=== PATIENT | male | born 1945 | race Caucasian/White ===

== ENCOUNTER 2021-01-19 07:23 | Inpatient (IN) | payer MEDICARE, MEDICAID ==
[2021-01-19 07:51] LABS: #Basophils 0.1 thou/uL (0.0-0.2); #Eosinphils 0.6 thou/uL (0.0-0.7); #Lymphocytes 1.7 thou/uL (1.20-3.40); #Neutrophils 9.4 thou/uL (1.40-6.50); %Basophils 0.6 % (0.0-1.0); %Eosinophils 4.6 % (0.0-10.0); %Lymphocytes 13.4 % (21.0-51.0); %Monocytes 7.6 % (0.0-10.0); %Neutrophils 73.8 % (42.0-75.0); Hemoglobin 12.1 g/dL (14.0-18.0); Mean Corpuscular Hemoglobin 31.3 pg (27.0-31.0); Mean Corpuscular Volume 94.7 fL (78.0-98.0); Mean Platelet Volume 7.7 fL (7.4-10.4); Platelet Count 341 thou/uL (130-400); Red Blood Cell (RBC) Count 3.86 mill/uL (4.70-6.10); White Blood Cell (WBC) Count 12.8 thou/uL (4.8-10.8)
[2021-01-19 08:00] LABS: ALT (SGPT) Less than 7 U/L (8-55); AST (SGOT) 9 U/L (5-34); Albumin 1.6 g/dL (3.4-4.8); Alkaline Phosphatase 27 U/L (40-110); Anion Gap 7 mmol/L (10-20); BUN (Urea Nitrogen) 25 mg/dL (8.4-25.7); Bilirubin, Total 0.3 mg/dL (0.2-1.2); Calc. Creatinine Clearance 0 mL/min (70-130); Carbon Dioxide 15 mmol/L (23-31); Chloride 124 mmol/L (98-107); Globulin 1.7 g/dL (2.4-3.5); Protein, Total 3.3 g/dL (5.8-8.1); Sodium 145 mmol/L (136-145)
[2021-01-19 08:08] LABS: Calcium 4.4 mg/dL (7.8-10.44); Glucose 58 mg/dL (83-110); Potassium 1.4 mmol/L (3.5-5.1)
[2021-01-19 08:33] LABS: CKMB 1.4 ng/mL (0-6.6)
[2021-01-19] MEDS ORDERED: Sodium Chloride 0.9% 0 ML ONE (08:35)
[2021-01-19] MEDS ORDERED: cefTRIAXone\\ROCEPHIN 1 GM VIAL ONE (08:35)
[2021-01-19] MEDS ORDERED: Azithromycin 500 MG VIAL ONE (09:24)
[2021-01-19] MEDS ORDERED: Sodium Chloride 0.9% 100 ML ONE (09:24)
[2021-01-19 10:32] LABS: #Basophils 0.1 thou/uL (0.0-0.2); #Eosinphils 0.3 thou/uL (0.0-0.7); #Lymphocytes 0.7 thou/uL (1.20-3.40); #Monocytes 0.3 thou/uL (0.11-0.59); #Neutrophils 9.3 thou/uL (1.40-6.50); %Basophils 0.7 % (0.0-1.0); %Eosinophils 3.1 % (0.0-10.0); %Lymphocytes 6.3 % (21.0-51.0); %Monocytes 3.1 % (0.0-10.0); %Neutrophils 86.8 % (42.0-75.0); Hemoglobin 13.4 g/dL (14.0-18.0); Mean Corpuscular Hemoglobin 31.2 pg (27.0-31.0); Mean Corpuscular Volume 94.3 fL (78.0-98.0); Mean Platelet Volume 8.1 fL (7.4-10.4); Platelet Count 332 thou/uL (130-400); RBC Distribution Width 12.1 % (11.5-14.5); White Blood Cell (WBC) Count 10.7 thou/uL (4.8-10.8)
[2021-01-19 10:53] LABS: Troponin I 0.056 ng/mL (< 0.028)
[2021-01-19 10:58] LABS: ALT (SGPT) 18 U/L (8-55); AST (SGOT) 24 U/L (5-34); Albumin 3.9 g/dL (3.4-4.8); Alkaline Phosphatase 63 U/L (40-110); Anion Gap 20 mmol/L (10-20); BUN (Urea Nitrogen) 48 mg/dL (8.4-25.7); Bilirubin, Total 0.7 mg/dL (0.2-1.2); Calc. Creatinine Clearance 0 mL/min (70-130); Calcium 10.2 mg/dL (7.8-10.44); Carbon Dioxide 27 mmol/L (23-31); Chloride 97 mmol/L (98-107); Globulin 4.3 g/dL (2.4-3.5); Glucose 115 mg/dL (83-110); Potassium 2.4 mmol/L (3.5-5.1); Protein, Total 8.2 g/dL (5.8-8.1); Sodium 142 mmol/L (136-145)
[2021-01-19] MEDS ORDERED: Potassium Chloride 20 MEQ TAB PO SCH (11:30)
[2021-01-19] MEDS ORDERED: Potassium Chloride 40 MEQ in Sodium Chloride 0.9% 250 ML 250 ML IVPB SCH (11:30)
[2021-01-19 13:21] LABS: Bilirubin Negative (Negative); Blood, Urine Negative (Negative); Clarity Clear (Clear); Glucose, Urine (Dipstick) Normal (Negative); Ketone, Urine Trace mg/dL (Negative); Leukocyte 25 Leu/uL (Negative); Nitrite Negative (Negative); Protein, Urine (Dipstick) 10 mg/dL (Neg-Trace); RBC/HPF 0-3 HPF (0-3); Specific Gravity, Urine 1.013 (1.002-1.036); Squamous Epithelial None Seen HPF (0-3); Urobilinogen Normal mg/dL (Less than 2)
[2021-01-19 13:49] LABS: Bacteria/HPF 1+ HPF (None Seen)
[2021-01-19] MEDS ORDERED: Acetaminophen 325 MG TAB PO PRN (15:45)
[2021-01-19] MEDS ORDERED: Ondansetron PF 4 MG/2 ML Vial IVP PRN (15:45)
[2021-01-19] MEDS ORDERED: Ondansetron ODT 4 MG TAB SL PRN (15:45)
[2021-01-19 16:42] LABS: Anion Gap 19 mmol/L (10-20); BUN (Urea Nitrogen) 45 mg/dL (8.4-25.7); Calc. Creatinine Clearance 31 mL/min (70-130); Calcium 9.2 mg/dL (7.8-10.44); Carbon Dioxide 24 mmol/L (23-31); Chloride 104 mmol/L (98-107); Glucose 134 mg/dL (83-110); Potassium 3.1 mmol/L (3.5-5.1); Sodium 144 mmol/L (136-145)
[2021-01-19] MEDS: Sodium Chloride 0.9% 1,000 ML IV SCH (17:39)
[2021-01-19 19:15] LABS: SARS-CoV-2 PCR by NAA Not Detected (NotDetected)
[2021-01-20 04:59] LABS: Hemoglobin 11.2 g/dL (14.0-18.0); Mean Corpuscular HGB CONC 31.1 g/dL (32.0-36.0); Mean Corpuscular Volume 96.5 fL (78.0-98.0); Mean Platelet Volume 7.9 fL (7.4-10.4); Platelet Count 268 thou/uL (130-400); RBC Distribution Width 12.1 % (11.5-14.5); Red Blood Cell (RBC) Count 3.73 mill/uL (4.70-6.10); White Blood Cell (WBC) Count 13.9 thou/uL (4.8-10.8)
[2021-01-20 05:21] LABS: Anion Gap 16 mmol/L (10-20); BUN (Urea Nitrogen) 44 mg/dL (8.4-25.7); Calc. Creatinine Clearance 34 mL/min (70-130); Calcium 8.9 mg/dL (7.8-10.44); Carbon Dioxide 22 mmol/L (23-31); Chloride 108 mmol/L (98-107); Glucose 102 mg/dL (83-110); Potassium 3.1 mmol/L (3.5-5.1); Sodium 143 mmol/L (136-145)
[2021-01-20] MEDS: Sodium Chloride 0.9% 1,000 ML IV SCH ×2 (06:18→18:56)
[2021-01-20] MEDS ORDERED: Potassium Chloride 20 MEQ TAB PO SCH ×2 (07:30→13:00)
[2021-01-20] MEDS ORDERED: cefTRIAXone Sodium 1,000 MG in Syringe 0 ML IVPB SCH (08:30)
[2021-01-20] MEDS: Azithromycin 250 MG TAB PO SCH (12:18)
[2021-01-20] MEDS: cefTRIAXone\\ROCEPHIN 1 GM in Sodium Chloride 0.9% 100 ML IVPB SCH (12:18)
[2021-01-21 05:29] LABS: #Basophils 0.1 thou/uL (0.0-0.2); #Lymphocytes 0.9 thou/uL (1.20-3.40); #Monocytes 0.8 thou/uL (0.11-0.59); #Neutrophils 11.2 thou/uL (1.40-6.50); %Basophils 0.5 % (0.0-1.0); %Eosinophils 7.1 % (0.0-10.0); %Lymphocytes 6.4 % (21.0-51.0); %Monocytes 5.5 % (0.0-10.0); %Neutrophils 80.5 % (42.0-75.0); Hemoglobin 10.8 g/dL (14.0-18.0); Mean Corpuscular Hemoglobin 29.8 pg (27.0-31.0); Mean Corpuscular Volume 96.2 fL (78.0-98.0); Mean Platelet Volume 7.9 fL (7.4-10.4); Platelet Count 280 thou/uL (130-400); RBC Distribution Width 12.1 % (11.5-14.5); Red Blood Cell (RBC) Count 3.64 mill/uL (4.70-6.10); White Blood Cell (WBC) Count 13.9 thou/uL (4.8-10.8)
[2021-01-21 05:53] LABS: Anion Gap 14 mmol/L (10-20); BUN (Urea Nitrogen) 30 mg/dL (8.4-25.7); Calc. Creatinine Clearance 57 mL/min (70-130); Carbon Dioxide 24 mmol/L (23-31); Chloride 108 mmol/L (98-107); Glucose 74 mg/dL (83-110); Sodium 143 mmol/L (136-145)
[2021-01-21] MEDS ORDERED: Potassium Chloride 20 MEQ in Premix Bag 1 BAG IVPB SCH (08:30)
[2021-01-21] MEDS: Sodium Chloride 0.9% 1,000 ML IV SCH ×2 (09:42→22:01)
[2021-01-21] MEDS ORDERED: cefTRIAXone\\ROCEPHIN 1 GM in Sodium Chloride 0.9% 100 ML IVPB SCH (12:00)
[2021-01-21] MEDS: cefTRIAXone\\ROCEPHIN 1 GM in Sodium Chloride 0.9% 100 ML IVPB SCH ×2 (15:08→20:05)
[2021-01-21] MEDS: Azithromycin 250 MG TAB PO SCH (15:09)
[2021-01-22] MEDS: Sodium Chloride 0.9% 1,000 ML IV SCH ×2 (03:18→09:32)
[2021-01-22 05:06] LABS: #Basophils 0.1 thou/uL (0.0-0.2); #Eosinphils 0.7 thou/uL (0.0-0.7); #Lymphocytes 0.8 thou/uL (1.20-3.40); #Monocytes 0.8 thou/uL (0.11-0.59); #Neutrophils 10.2 thou/uL (1.40-6.50); %Basophils 0.5 % (0.0-1.0); %Eosinophils 5.4 % (0.0-10.0); %Lymphocytes 6.1 % (21.0-51.0); %Monocytes 6.5 % (0.0-10.0); %Neutrophils 81.6 % (42.0-75.0); Hemoglobin 11.1 g/dL (14.0-18.0); Mean Corpuscular HGB CONC 33.2 g/dL (32.0-36.0); Mean Corpuscular Hemoglobin 31.7 pg (27.0-31.0); Mean Corpuscular Volume 95.6 fL (78.0-98.0); Mean Platelet Volume 7.8 fL (7.4-10.4); Platelet Count 257 thou/uL (130-400); RBC Distribution Width 12.1 % (11.5-14.5); Red Blood Cell (RBC) Count 3.51 mill/uL (4.70-6.10); White Blood Cell (WBC) Count 12.6 thou/uL (4.8-10.8)
[2021-01-22 05:21] LABS: Anion Gap 16 mmol/L (10-20); BUN (Urea Nitrogen) 22 mg/dL (8.4-25.7); Calc. Creatinine Clearance 54 mL/min (70-130); Calcium 8.8 mg/dL (7.8-10.44); Carbon Dioxide 27 mmol/L (23-31); Chloride 108 mmol/L (98-107); Glucose 79 mg/dL (83-110); Sodium 148 mmol/L (136-145)
[2021-01-22 05:25] LABS: Potassium 2.8 mmol/L (3.5-5.1)
[2021-01-22] MEDS ORDERED: Electrolyte Replacement Protocol 1 EACH FS PRN (05:51)
[2021-01-22] MEDS: Potassium Chloride 20 MEQ in Premix Bag 1 BAG IVPB SCH ×4 (06:07→18:12)
[2021-01-22] MEDS ORDERED: Magnesium 2 GM/50 ML 2 GM in Premix Bag 1 BAG IVPB SCH (07:30)
[2021-01-22] MEDS: Azithromycin 250 MG in Sodium Chloride 0.9% 250 ML 250 ML IVPB SCH (09:20)
[2021-01-22] MEDS ORDERED: hydrALAZINE 20 MG/ML VIAL SLOW IVP PRN (11:26)
[2021-01-22] MEDS: D5 1/2 NS w/20 mEq KCL 1,000 ML IV SCH (13:30)
[2021-01-22] MEDS: cefTRIAXone\\ROCEPHIN 1 GM in Sodium Chloride 0.9% 100 ML IVPB SCH (16:48)
[2021-01-23] MEDS: D5 1/2 NS w/20 mEq KCL 1,000 ML IV SCH ×2 (02:25→11:43)
[2021-01-23 05:27] LABS: #Basophils 0.1 thou/uL (0.0-0.2); #Eosinphils 0.7 thou/uL (0.0-0.7); #Lymphocytes 0.7 thou/uL (1.20-3.40); #Monocytes 0.8 thou/uL (0.11-0.59); #Neutrophils 10.5 thou/uL (1.40-6.50); %Basophils 0.5 % (0.0-1.0); %Eosinophils 5.5 % (0.0-10.0); %Lymphocytes 5.4 % (21.0-51.0); %Monocytes 6.1 % (0.0-10.0); %Neutrophils 82.6 % (42.0-75.0); Hemoglobin 11.4 g/dL (14.0-18.0); Mean Platelet Volume 7.9 fL (7.4-10.4); Platelet Count 255 thou/uL (130-400); RBC Distribution Width 12.2 % (11.5-14.5); Red Blood Cell (RBC) Count 3.69 mill/uL (4.70-6.10); White Blood Cell (WBC) Count 12.7 thou/uL (4.8-10.8)
[2021-01-23 06:00] LABS: Anion Gap 7 mmol/L (10-20); BUN (Urea Nitrogen) 14 mg/dL (8.4-25.7); Calc. Creatinine Clearance 62 mL/min (70-130); Calcium 8.7 mg/dL (7.8-10.44); Carbon Dioxide 32 mmol/L (23-31); Chloride 108 mmol/L (98-107); Glucose 140 mg/dL (83-110); Magnesium 1.6 mg/dL (1.6-2.6); Sodium 144 mmol/L (136-145)
[2021-01-23 06:03] LABS: Potassium 2.9 mmol/L (3.5-5.1)
[2021-01-23] MEDS ORDERED: Magnesium 2 GM/50 ML 2 GM in Premix Bag 1 BAG IVPB SCH (06:30)
[2021-01-23] MEDS: Potassium Chloride 20 MEQ in Premix Bag 1 BAG IVPB SCH ×4 (07:39→13:02)
[2021-01-23] MEDS ORDERED: PROPOFOL 200 MG/20 ML VIAL ONE (09:54)
[2021-01-23] MEDS: Azithromycin 250 MG in Sodium Chloride 0.9% 250 ML 250 ML IVPB SCH (11:03)
[2021-01-23 13:24] VITALS: BMI 16.7
[2021-01-23] MEDS: cefTRIAXone\\ROCEPHIN 1 GM in Sodium Chloride 0.9% 100 ML IVPB SCH (14:05)
[2021-01-23] MEDS ORDERED: Morphine 2 MG/ML VIAL SLOW IVP PRN (16:51)
[2021-01-23] MEDS: HYDROcodone/Acetaminophen 5/325 mg Tablet PER TUBE PRN (18:04)
[2021-01-23] MEDS ORDERED: Sodium Bicarbonate Tab 325 MG TAB PER TUBE PRN (19:15)
[2021-01-23] MEDS ORDERED: Pancrelipase DR 12,000 1 CAP FS PRN (19:15)
[2021-01-23 19:58] LABS: Anion Gap 15 mmol/L (10-20); BUN (Urea Nitrogen) 11 mg/dL (8.4-25.7); Calc. Creatinine Clearance 61 mL/min (70-130); Calcium 8.6 mg/dL (7.8-10.44); Carbon Dioxide 25 mmol/L (23-31); Chloride 106 mmol/L (98-107); Glucose 227 mg/dL (83-110); Sodium 143 mmol/L (136-145)
[2021-01-23 20:03] LABS: Potassium 2.8 mmol/L (3.5-5.1)
[2021-01-23] MEDS: Pantoprazole 40 MG VIAL IVP SCH (23:46)
[2021-01-23] MEDS: Amoxicillin/Potassium Clav 600 mg/5 ml Oral Suspension PER TUBE SCH (23:46)
[2021-01-24] MEDS: D5 1/2 NS w/20 mEq KCL 1,000 ML IV SCH ×2 (04:49→17:25)
[2021-01-24] MEDS ORDERED: Magnesium 2 GM/50 ML 2 GM in Premix Bag 1 BAG IVPB SCH (06:15)
[2021-01-24] MEDS: Potassium Bicarbonate/Cit Ac 20 MEQ TAB PER TUBE SCH ×4 (08:36→21:40)
[2021-01-24] MEDS: Pantoprazole 40 MG VIAL IVP SCH ×2 (08:39→21:40)
[2021-01-24] MEDS: Amoxicillin/Potassium Clav 600 mg/5 ml Oral Suspension PER TUBE SCH (08:44)
[2021-01-24 08:50] LABS: Anion Gap 9 mmol/L (10-20); BUN (Urea Nitrogen) 13 mg/dL (8.4-25.7); Calc. Creatinine Clearance 61 mL/min (70-130); Calcium 8.6 mg/dL (7.8-10.44); Carbon Dioxide 29 mmol/L (23-31); Chloride 106 mmol/L (98-107); Glucose 168 mg/dL (83-110); Sodium 141 mmol/L (136-145)
[2021-01-24 09:12] LABS: Potassium 2.8 mmol/L (3.5-5.1)
[2021-01-24 11:08] LABS: Phosphorus Less than 1.0 mg/dL (2.3-4.7)
[2021-01-24] MEDS ORDERED: Acetaminophen 325 MG TAB PER TUBE PRN (11:45)
[2021-01-24] MEDS: K-Phos Neutral 250 MG TAB PER TUBE SCH ×2 (13:00→17:29)
[2021-01-24] MEDS ORDERED: Furosemide 40 MG/4 ML VIAL SLOW IVP SCH (15:45)
[2021-01-24 19:58] LABS: Potassium 3.3 mmol/L (3.5-5.1)
[2021-01-24] MEDS ORDERED: Piperacillin/Tazobactam 3.375 GM in Sodium Chloride 0.9% 100 ML IVPB SCH ×2 (20:00→23:59)
[2021-01-24] MEDS: HYDROcodone/Acetaminophen 5/325 mg Tablet PER TUBE PRN (21:35)
[2021-01-25] MEDS: Piperacillin/Tazobactam 3.375 GM in Sodium Chloride 0.9% 100 ML IVPB SCH ×3 (01:36→16:18)
[2021-01-25 05:07] LABS: Anion Gap 13 mmol/L (10-20); BUN (Urea Nitrogen) 12 mg/dL (8.4-25.7); Calc. Creatinine Clearance 59 mL/min (70-130); Calcium 8.3 mg/dL (7.8-10.44); Carbon Dioxide 32 mmol/L (23-31); Chloride 100 mmol/L (98-107); Glucose 118 mg/dL (83-110); Potassium 3.5 mmol/L (3.5-5.1); Sodium 141 mmol/L (136-145)
[2021-01-25] MEDS: PHOS-NAK 1 PKT PACK PO SCH ×4 (06:18→18:16)
[2021-01-25] MEDS ORDERED: Potassium Bicarbonate/Cit Ac 20 MEQ TAB PO SCH (06:30)
[2021-01-25 08:56] LABS: Band 12 % (5-11); Eosinophils 1 % (0-10); Hemoglobin 12.8 g/dL (14.0-18.0); Lymphocytes 2 % (21-51); MDiff Complete? YES; Mean Corpuscular Hemoglobin 31.9 pg (27.0-31.0); Mean Corpuscular Volume 93.8 fL (78.0-98.0); Mean Platelet Volume 8.6 fL (7.4-10.4); Monocytes 2 % (0-10); Neutrophil 83 % (42-75); Platelet Count 280 thou/uL (130-400); Platelet Morphology Comment Appears Adequate; RBC Distribution Width 12.6 % (11.5-14.5); RBC Morphology Normal; White Blood Cell (WBC) Count 16.7 thou/uL (4.8-10.8)
[2021-01-25] MEDS: D5 1/2 NS w/20 mEq KCL 1,000 ML IV SCH (09:24)
[2021-01-25] MEDS: Pantoprazole 40 MG VIAL IVP SCH ×2 (09:26→22:13)
[2021-01-25] MEDS: K-Phos Neutral 250 MG TAB PER TUBE SCH ×3 (09:27→18:16)
[2021-01-25] MEDS: Potassium Bicarbonate/Cit Ac 20 MEQ TAB PER TUBE SCH ×3 (09:27→22:13)
[2021-01-25] MEDS: HYDROcodone/Acetaminophen 5/325 mg Tablet PER TUBE PRN ×2 (12:20→22:14)
[2021-01-26] MEDS: Piperacillin/Tazobactam 3.375 GM in Sodium Chloride 0.9% 100 ML IVPB SCH ×3 (00:10→16:22)
[2021-01-26] MEDS: D5 1/2 NS w/20 mEq KCL 1,000 ML IV SCH ×2 (07:09→09:14)
[2021-01-26 08:07] LABS: Phosphorus 3.6 mg/dL (2.3-4.7)
[2021-01-26] MEDS: K-Phos Neutral 250 MG TAB PER TUBE SCH ×3 (09:15→16:21)
[2021-01-26] MEDS: Pantoprazole 40 MG VIAL IVP SCH ×2 (09:15→20:51)
[2021-01-26] MEDS: Potassium Bicarbonate/Cit Ac 20 MEQ TAB PER TUBE SCH ×3 (09:22→20:51)
[2021-01-26] MEDS: Amoxicillin/Potassium Clav 600 mg/5 ml Oral Suspension PER TUBE SCH ×2 (09:53→20:51)
[2021-01-26 16:25] LABS: Chloride 104 mmol/L (98-107); Potassium 3.7 mmol/L (3.5-5.1); Sodium 149 mmol/L (136-145)
[2021-01-26 16:26] LABS: Glucose 115 mg/dL (83-110)
[2021-01-26 16:29] LABS: Calc. Creatinine Clearance 56 mL/min (70-130)
[2021-01-26 16:30] LABS: BUN (Urea Nitrogen) 16 mg/dL (8.4-25.7)
[2021-01-26 16:32] LABS: Magnesium 1.5 mg/dL (1.6-2.6)
[2021-01-26] MEDS ORDERED: Magnesium 2 GM/50 ML 2 GM in Premix Bag 1 BAG IVPB SCH (17:00)
[2021-01-26 17:03] LABS: Anion Gap 16 mmol/L (10-20); Carbon Dioxide 31 mmol/L (23-31)
[2021-01-27] MEDS: Piperacillin/Tazobactam 3.375 GM in Sodium Chloride 0.9% 100 ML IVPB SCH ×3 (05:07→15:15)
[2021-01-27 05:33] LABS: Anion Gap 13 mmol/L (10-20); BUN (Urea Nitrogen) 15 mg/dL (8.4-25.7); Calc. Creatinine Clearance 58 mL/min (70-130); Calcium 8.1 mg/dL (7.8-10.44); Carbon Dioxide 30 mmol/L (23-31); Chloride 106 mmol/L (98-107); Glucose 149 mg/dL (83-110); Phosphorus 3.1 mg/dL (2.3-4.7); Potassium 3.7 mmol/L (3.5-5.1); Sodium 145 mmol/L (136-145)
[2021-01-27] MEDS: Pantoprazole 40 MG VIAL IVP SCH ×2 (08:16→20:56)
[2021-01-27] MEDS: Potassium Bicarbonate/Cit Ac 20 MEQ TAB PER TUBE SCH ×3 (08:16→20:55)
[2021-01-27] MEDS: Amoxicillin/Potassium Clav 600 mg/5 ml Oral Suspension PER TUBE SCH ×2 (08:16→20:56)
[2021-01-27] MEDS: K-Phos Neutral 250 MG TAB PER TUBE SCH ×3 (08:16→16:45)
[2021-01-27] MEDS: D5 1/2 NS w/20 mEq KCL 1,000 ML IV SCH (09:04)
[2021-01-27] MEDS ORDERED: Magnesium 2 GM/50 ML 2 GM in Premix Bag 1 BAG IVPB SCH (09:15)
[2021-01-27] MEDS: HYDROcodone/Acetaminophen 5/325 mg Tablet PER TUBE PRN (12:44)
[2021-01-27] MEDS ORDERED: Furosemide 20 MG/2 ML VIAL SLOW IVP SCH (14:30)
[2021-01-27] MEDS ORDERED: HumaLOG 300 UNITS/3 ML VIAL SC PRN ×2 (14:40)
[2021-01-27] MEDS ORDERED: Dextrose 50% Abboject 50 ML SYRINGE SLOW IVP PRN (14:40)
[2021-01-27] MEDS ORDERED: Dextrose 5% in Water 1,000 ML IV PRN (14:40)
[2021-01-27] MEDS: methylPREDNISolone Sod Succ 40 MG VIAL IVP SCH (18:03)
[2021-01-28] MEDS: Piperacillin/Tazobactam 3.375 GM in Sodium Chloride 0.9% 100 ML IVPB SCH ×3 (00:05→16:08)
[2021-01-28] MEDS: methylPREDNISolone Sod Succ 40 MG VIAL IVP SCH ×3 (00:05→11:26)
[2021-01-28 04:49] LABS: Anion Gap 17 mmol/L (10-20); BUN (Urea Nitrogen) 17 mg/dL (8.4-25.7); Calc. Creatinine Clearance 57 mL/min (70-130); Calcium 8.5 mg/dL (7.8-10.44); Carbon Dioxide 33 mmol/L (23-31); Chloride 103 mmol/L (98-107); Glucose 138 mg/dL (83-110); Magnesium 2.2 mg/dL (1.6-2.6); Potassium 3.7 mmol/L (3.5-5.1); Sodium 149 mmol/L (136-145)
[2021-01-28] MEDS: Amoxicillin/Potassium Clav 600 mg/5 ml Oral Suspension PER TUBE SCH (08:57)
[2021-01-28] MEDS: Potassium Bicarbonate/Cit Ac 20 MEQ TAB PER TUBE SCH ×3 (08:57→21:21)
[2021-01-28] MEDS: K-Phos Neutral 250 MG TAB PER TUBE SCH ×3 (09:08→16:09)
[2021-01-28] MEDS: Pantoprazole 40 MG VIAL IVP SCH ×2 (09:09→21:21)
[2021-01-28] MEDS ORDERED: methylPREDNISolone Sod Succ/PF 125 MG/2 ML VIAL IVP SCH (12:00)
[2021-01-28] MEDS: HYDROcodone/Acetaminophen 5/325 mg Tablet PER TUBE PRN (13:55)
[2021-01-28] MEDS: methylPREDNISolone Sod Succ/PF 125 MG/2 ML VIAL IVP SCH (21:21)
[2021-01-29] MEDS: Piperacillin/Tazobactam 3.375 GM in Sodium Chloride 0.9% 100 ML IVPB SCH ×3 (01:17→16:59)
[2021-01-29] MEDS: Potassium Bicarbonate/Cit Ac 20 MEQ TAB PER TUBE SCH ×3 (08:52→21:00)
[2021-01-29] MEDS: Pantoprazole 40 MG VIAL IVP SCH ×2 (08:52→21:02)
[2021-01-29] MEDS: K-Phos Neutral 250 MG TAB PER TUBE SCH ×3 (08:52→16:59)
[2021-01-29] MEDS: methylPREDNISolone Sod Succ/PF 125 MG/2 ML VIAL IVP SCH (08:53)
[2021-01-29] MEDS: HYDROcodone/Acetaminophen 5/325 mg Tablet PER TUBE PRN ×2 (08:55→21:02)
[2021-01-30] MEDS: Piperacillin/Tazobactam 3.375 GM in Sodium Chloride 0.9% 100 ML IVPB SCH ×3 (00:49→16:04)
[2021-01-30] MEDS: HYDROcodone/Acetaminophen 5/325 mg Tablet PER TUBE PRN ×3 (01:38→20:38)
[2021-01-30] MEDS: Potassium Bicarbonate/Cit Ac 20 MEQ TAB PER TUBE SCH ×3 (08:25→20:38)
[2021-01-30] MEDS: K-Phos Neutral 250 MG TAB PER TUBE SCH ×3 (08:25→16:04)
[2021-01-30] MEDS: Furosemide 40 MG TAB PO SCH (08:25)
[2021-01-30] MEDS: Pantoprazole 40 MG VIAL IVP SCH ×2 (08:28→20:39)
[2021-01-30] MEDS: methylPREDNISolone Sod Succ 40 MG VIAL IVP SCH (08:29)
[2021-01-30 09:08] LABS: #Lymphocytes 0.8 thou/uL (1.20-3.40); #Monocytes 0.7 thou/uL (0.11-0.59); #Neutrophils 12.2 thou/uL (1.40-6.50); %Eosinophils 6.8 % (0.0-10.0); %Lymphocytes 5.4 % (21.0-51.0); %Monocytes 4.5 % (0.0-10.0); %Neutrophils 83.3 % (42.0-75.0); Hemoglobin 11.6 g/dL (14.0-18.0); Mean Corpuscular HGB CONC 31.8 g/dL (32.0-36.0); Mean Corpuscular Hemoglobin 30.8 pg (27.0-31.0); Mean Platelet Volume 9.1 fL (7.4-10.4); Platelet Count 234 thou/uL (130-400); RBC Distribution Width 12.7 % (11.5-14.5); Red Blood Cell (RBC) Count 3.76 mill/uL (4.70-6.10); White Blood Cell (WBC) Count 14.7 thou/uL (4.8-10.8)
[2021-01-30 09:20] LABS: INR-International Normal Ratio 1.2; PTT 25.9 sec (22.9-36.1); Prothrombin Time 14.7 sec (12.0-14.7)
[2021-01-30 09:30] LABS: ALT (SGPT) 45 U/L (8-55); AST (SGOT) 27 U/L (5-34); Albumin 2.6 g/dL (3.4-4.8); Alkaline Phosphatase 74 U/L (40-110); Anion Gap 11 mmol/L (10-20); BUN (Urea Nitrogen) 18 mg/dL (8.4-25.7); Bilirubin, Total 0.6 mg/dL (0.2-1.2); Calc. Creatinine Clearance 62 mL/min (70-130); Calcium 8.6 mg/dL (7.8-10.44); Carbon Dioxide 32 mmol/L (23-31); Chloride 108 mmol/L (98-107); Globulin 3.2 g/dL (2.4-3.5); Glucose 92 mg/dL (83-110); Protein, Total 5.8 g/dL (5.8-8.1); Sodium 147 mmol/L (136-145)
[2021-01-31] MEDS: Piperacillin/Tazobactam 3.375 GM in Sodium Chloride 0.9% 100 ML IVPB SCH ×3 (00:27→15:53)
[2021-01-31] MEDS: Pantoprazole 40 MG VIAL IVP SCH (08:17)
[2021-01-31] MEDS: methylPREDNISolone Sod Succ 40 MG VIAL IVP SCH (08:17)
[2021-01-31] MEDS: Potassium Bicarbonate/Cit Ac 20 MEQ TAB PER TUBE SCH ×3 (08:17→22:15)
[2021-01-31] MEDS: K-Phos Neutral 250 MG TAB PER TUBE SCH ×3 (08:18→15:53)
[2021-01-31] MEDS: Furosemide 40 MG TAB PO SCH (08:18)
[2021-01-31] MEDS: HYDROcodone/Acetaminophen 5/325 mg Tablet PER TUBE PRN ×2 (08:27→14:32)
[2021-01-31] MEDS: Pantoprazole 40 MG GRANULES PACKET PER TUBE SCH (22:16)
[2021-02-01] MEDS: Melatonin 3 MG TAB PO PRN (00:42)
[2021-02-01] MEDS: Amoxicillin/Potassium Clav 875 MG TAB PO SCH ×2 (06:10→17:55)
[2021-02-01] MEDS: Pantoprazole 40 MG GRANULES PACKET PER TUBE SCH ×2 (08:57→21:48)
[2021-02-01] MEDS: Potassium Bicarbonate/Cit Ac 20 MEQ TAB PER TUBE SCH ×3 (08:57→21:48)
[2021-02-01] MEDS: K-Phos Neutral 250 MG TAB PER TUBE SCH ×3 (08:57→15:57)
[2021-02-01] MEDS: methylPREDNISolone Sod Succ 40 MG VIAL IVP SCH (08:57)
[2021-02-01] MEDS: Furosemide 40 MG TAB PO SCH (08:57)
[2021-02-01] MEDS: HYDROcodone/Acetaminophen 5/325 mg Tablet PER TUBE PRN ×2 (11:44→17:54)
[2021-02-02] MEDS: HYDROcodone/Acetaminophen 5/325 mg Tablet PER TUBE PRN ×2 (03:28→15:48)
[2021-02-02] MEDS: Amoxicillin/Potassium Clav 875 MG TAB PO SCH ×2 (05:22→17:47)
[2021-02-02] MEDS: Potassium Bicarbonate/Cit Ac 20 MEQ TAB PER TUBE SCH ×3 (08:43→22:00)
[2021-02-02] MEDS: K-Phos Neutral 250 MG TAB PER TUBE SCH ×3 (08:43→16:01)
[2021-02-02] MEDS: Furosemide 40 MG TAB PO SCH (08:43)
[2021-02-02] MEDS: predniSONE 20 MG TAB PO SCH (08:44)
[2021-02-02] MEDS: Pantoprazole 40 MG GRANULES PACKET PER TUBE SCH ×2 (08:44→22:00)
[2021-02-02] MEDS: Nystatin Powder 15 GM BOT TOP SCH (22:00)
[2021-02-03] MEDS: Melatonin 3 MG TAB PO PRN (00:52)
[2021-02-03 06:04] LABS: Anion Gap 15 mmol/L (10-20); BUN (Urea Nitrogen) 26 mg/dL (8.4-25.7); Calc. Creatinine Clearance 55 mL/min (70-130); Calcium 8.9 mg/dL (7.8-10.44); Carbon Dioxide 28 mmol/L (23-31); Chloride 101 mmol/L (98-107); Glucose 95 mg/dL (83-110); Potassium 4.9 mmol/L (3.5-5.1); Sodium 139 mmol/L (136-145)
[2021-02-03] MEDS: Amoxicillin/Potassium Clav 875 MG TAB PO SCH ×2 (06:40→17:50)
[2021-02-03] MEDS: Pantoprazole 40 MG GRANULES PACKET PER TUBE SCH ×2 (08:53→23:12)
[2021-02-03] MEDS: predniSONE 20 MG TAB PO SCH (08:53)
[2021-02-03] MEDS: Nystatin Powder 15 GM BOT TOP SCH ×2 (08:53→23:12)
[2021-02-03] MEDS: Furosemide 40 MG TAB PO SCH (08:53)
[2021-02-03] MEDS: K-Phos Neutral 250 MG TAB PER TUBE SCH (09:25)
[2021-02-03] MEDS ORDERED: HYDROcodone/Acetaminophen 5/325 mg Tablet PER TUBE PRN ×2 (10:18→10:41)
[2021-02-03] MEDS ORDERED: Morphine 2 MG/ML VIAL SLOW IVP PRN (10:19)
[2021-02-03] MEDS ORDERED: Metoprolol Tartrate 25 MG TAB PO SCH (21:00)
[2021-02-04 04:47] LABS: #Eosinphils 0.9 thou/uL (0.0-0.7); #Lymphocytes 0.7 thou/uL (1.20-3.40); #Monocytes 0.6 thou/uL (0.11-0.59); #Neutrophils 10.1 thou/uL (1.40-6.50); %Basophils 0.2 % (0.0-1.0); %Eosinophils 7.5 % (0.0-10.0); %Lymphocytes 5.4 % (21.0-51.0); %Monocytes 4.8 % (0.0-10.0); %Neutrophils 82.1 % (42.0-75.0); Mean Corpuscular HGB CONC 31.4 g/dL (32.0-36.0); Mean Corpuscular Hemoglobin 29.9 pg (27.0-31.0); Mean Corpuscular Volume 95.2 fL (78.0-98.0); Mean Platelet Volume 9.4 fL (7.4-10.4); Platelet Count 247 thou/uL (130-400); Red Blood Cell (RBC) Count 4.03 mill/uL (4.70-6.10); White Blood Cell (WBC) Count 12.3 thou/uL (4.8-10.8)
[2021-02-04 05:08] LABS: Anion Gap 14 mmol/L (10-20); BUN (Urea Nitrogen) 26 mg/dL (8.4-25.7); Calc. Creatinine Clearance 57 mL/min (70-130); Calcium 8.5 mg/dL (7.8-10.44); Carbon Dioxide 25 mmol/L (23-31); Chloride 99 mmol/L (98-107); Glucose 91 mg/dL (83-110); Potassium 4.2 mmol/L (3.5-5.1); Sodium 134 mmol/L (136-145)
[2021-02-04] MEDS: Amoxicillin/Potassium Clav 875 MG TAB PO SCH (05:37)
[2021-02-04] MEDS ORDERED: Melatonin 3 MG TAB PER TUBE PRN (08:06)
[2021-02-04] MEDS: Furosemide 40 MG TAB PO SCH (08:25)
[2021-02-04] MEDS: Pantoprazole 40 MG GRANULES PACKET PER TUBE SCH (08:25)
[2021-02-04] MEDS: Nystatin Powder 15 GM BOT TOP SCH (08:26)
[2021-02-04] MEDS ORDERED: Metoprolol Tartrate 25 MG TAB PER TUBE SCH (09:00)
[2021-02-04] MEDS ORDERED: Clarithromycin 500 MG TAB PO SCH ×2 (11:15→21:00)
[2021-02-04 16:00] VITALS: BP 121/59; TEMP 97.5
[2021-02-04] MEDS ORDERED: Amoxicillin/Potassium Clav 875 MG TAB PER TUBE SCH (18:00)
== END 2021-02-04 16:00 | DRG 177 ==
LOC: ERS 07:23 → 2SW 12:32 → OBSVTOIN 01-21 19:09 → ERHOLD 01-23 19:28 → 2SW 01-23 19:29 → 2NO 01-23 22:27
PROVIDERS: ADMIT Internal Medicine; ATTEND Internal Medicine
PROC: 0DH63UZ Insertion of Feeding Device into Stomach, Percutaneous Approach (ICD-10-PCS; principal; 2021-01-23)
PROC: 0DB98ZX Excision of Duodenum, Via Natural or Artificial Opening Endoscopic, Diagnostic (ICD-10-PCS; 2021-01-23)
PROC: 0DB78ZX Excision of Stomach, Pylorus, Via Natural or Artificial Opening Endoscopic, Diagnostic (ICD-10-PCS; 2021-01-23)
DX: J69.0 Pneumonitis due to inhalation of food and vomit (principal); J96.01 Acute respiratory failure with hypoxia; N17.9 Acute kidney failure, unspecified; E44.0 Moderate protein-calorie malnutrition; I50.32 Chronic diastolic (congestive) heart failure; I13.0 Hypertensive heart and chronic kidney disease with heart failure and stage 1 through stage 4 chronic kidney disease, or unspecified chronic kidney disease; Z68.1 Body mass index [BMI] 19.9 or less, adult; I47.2 Ventricular tachycardia; K29.50 Unspecified chronic gastritis without bleeding; Z51.5 Encounter for palliative care; Z66 Do not resuscitate; Z20.822 Contact with and (suspected) exposure to COVID-19; D64.9 Anemia, unspecified; E87.6 Hypokalemia; R13.12 Dysphagia, oropharyngeal phase; N18.31 Chronic kidney disease, stage 3a; E78.5 Hyperlipidemia, unspecified; K21.00 Gastro-esophageal reflux disease with esophagitis, without bleeding; K25.9 Gastric ulcer, unspecified as acute or chronic, without hemorrhage or perforation; K26.9 Duodenal ulcer, unspecified as acute or chronic, without hemorrhage or perforation; E83.39 Other disorders of phosphorus metabolism; B96.81 Helicobacter pylori [H. pylori] as the cause of diseases classified elsewhere; K29.80 Duodenitis without bleeding; I49.3 Ventricular premature depolarization; I49.1 Atrial premature depolarization; Z87.891 Personal history of nicotine dependence; Z79.899 Other long term (current) drug therapy
CPT/HCPCS: 36415; 36416; 71045; 74230; 80048; 80053; 81003; 81015; 82553; 83605; 83735; 83880; 84100; 84484; 85025; 85027; 85610; 85730; 88305; 88312; 93005; 93010; 93306; 94640; 96365; 96366; 96367; 96376; C9113; G0378; J0360; J0456; J0690; J0696; J1940; J2270; J2543; J2704; J2920; J2930; J3475; J3480; J3490; J7050; J7512; J7620; U0003; U0005

== ENCOUNTER 2021-02-07 03:02 | Inpatient (IN) | payer MEDICARE, MEDICAID ==
[2021-03-01] MEDS ORDERED: Ondansetron PF 4 MG/2 ML Vial IVP PRN (04:36)
[2021-03-01] MEDS ORDERED: Acetaminophen 325 MG TAB PO PRN (04:36)
[2021-03-01 05:53] LABS: Hemoglobin 8.1 g/dL (14.0-18.0); Mean Corpuscular HGB CONC 31.4 g/dL (32.0-36.0); Mean Corpuscular Hemoglobin 30.5 pg (27.0-31.0); Mean Corpuscular Volume 97.2 fL (78.0-98.0); Mean Platelet Volume 7.6 fL (7.4-10.4); Platelet Count 525 thou/uL (130-400); Red Blood Cell (RBC) Count 2.65 mill/uL (4.70-6.10)
[2021-03-01] MEDS ORDERED: Meropenem 1 GM in Sodium Chloride 0.9% 100 ML IVPB SCH (06:00)
[2021-03-01 06:07] LABS: BUN (Urea Nitrogen) 22 mg/dL (8.4-25.7); Calc. Creatinine Clearance 64 mL/min (70-130); Calcium 8.5 mg/dL (7.8-10.44); Glucose 110 mg/dL (83-110)
[2021-03-01 06:17] LABS: Anion Gap 10 mmol/L (10-20); Carbon Dioxide 35 mmol/L (23-31); Chloride 105 mmol/L (98-107); Potassium 3.5 mmol/L (3.5-5.1); Sodium 146 mmol/L (136-145)
[2021-03-01] MEDS ORDERED: MEROPENEM 1 GM/50 ML 1 GM in Premix Bag 1 BAG IVPB SCH (08:00)
[2021-03-01 08:35] LABS: Band 7 % (5-11); Eosinophils 6 % (0-10); Lymphocytes 5 % (21-51); MDiff Complete? YES; Monocytes 2 % (0-10); Neutrophil 80 % (42-75); Platelet Morphology Comment Appears Increased; Polychromasia SLIGHT = 2-3 cells (100X) (0-2/hpf); Vacuoles SLIGHT; White Blood Cell (WBC) Count 22.8 thou/uL (4.8-10.8)
[2021-03-01 11:50] VITALS: BMI 17.2
[2021-03-01] MEDS: MEROPENEM 1 GM/50 ML 1 GM in Premix Bag 1 BAG IVPB SCH (15:13)
[2021-03-02] MEDS: MEROPENEM 1 GM/50 ML 1 GM in Premix Bag 1 BAG IVPB SCH ×4 (00:21→23:38)
[2021-03-02] MEDS: Acetaminophen 650 MG/20.3 ML UDCUP PO PRN (02:39)
[2021-03-02] MEDS: Enoxaparin Sodium 30 MG/0.3 ML SYRINGE SC SCH (08:15)
[2021-03-02 08:40] LABS: BUN (Urea Nitrogen) 18 mg/dL (8.4-25.7); Calc. Creatinine Clearance 84 mL/min (70-130); Calcium 8.6 mg/dL (7.8-10.44); Glucose 119 mg/dL (83-110)
[2021-03-02 08:49] LABS: Band 10 % (5-11); Eosinophils 6 % (0-10); Hemoglobin 9.2 g/dL (14.0-18.0); Lymphocytes 6 % (21-51); MDiff Complete? YES; Mean Corpuscular HGB CONC 31.4 g/dL (32.0-36.0); Mean Corpuscular Hemoglobin 30.8 pg (27.0-31.0); Mean Platelet Volume 7.8 fL (7.4-10.4); Monocytes 4 % (0-10); Neutrophil 74 % (42-75); Platelet Count 495 thou/uL (130-400); RBC Distribution Width 14.2 % (11.5-14.5); Red Blood Cell (RBC) Count 2.99 mill/uL (4.70-6.10); White Blood Cell (WBC) Count 23.2 thou/uL (4.8-10.8)
[2021-03-02 08:50] LABS: Anion Gap 8 mmol/L (10-20); Carbon Dioxide 35 mmol/L (23-31); Chloride 108 mmol/L (98-107); Potassium 3.9 mmol/L (3.5-5.1); Sodium 147 mmol/L (136-145)
[2021-03-02] MEDS ORDERED: Enoxaparin Sodium 40 MG/0.4 ML SYRINGE SC SCH (09:00)
[2021-03-03 06:43] LABS: Anion Gap 5 mmol/L (10-20); BUN (Urea Nitrogen) 17 mg/dL (8.4-25.7); Calc. Creatinine Clearance 87 mL/min (70-130); Calcium 8.4 mg/dL (7.8-10.44); Carbon Dioxide 35 mmol/L (23-31); Chloride 108 mmol/L (98-107); Glucose 131 mg/dL (83-110); Sodium 144 mmol/L (136-145)
[2021-03-03 06:53] LABS: Hemoglobin 9.1 g/dL (14.0-18.0); Mean Corpuscular HGB CONC 31.7 g/dL (32.0-36.0); Mean Corpuscular Hemoglobin 31.1 pg (27.0-31.0); Mean Platelet Volume 7.8 fL (7.4-10.4); Platelet Count 390 thou/uL (130-400); RBC Distribution Width 14.2 % (11.5-14.5); Red Blood Cell (RBC) Count 2.93 mill/uL (4.70-6.10); White Blood Cell (WBC) Count 25.9 thou/uL (4.8-10.8)
[2021-03-03 06:54] LABS: Band 17 % (5-11); Eosinophils 7 % (0-10); Lymphocytes 5 % (21-51); MDiff Complete? YES; Monocytes 4 % (0-10); Neutrophil 67 % (42-75)
[2021-03-03] MEDS: MEROPENEM 1 GM/50 ML 1 GM in Premix Bag 1 BAG IVPB SCH ×3 (08:47→23:53)
[2021-03-03] MEDS: Enoxaparin Sodium 30 MG/0.3 ML SYRINGE SC SCH (08:48)
[2021-03-03] MEDS: Acetaminophen 650 MG/20.3 ML UDCUP PO PRN (13:25)
[2021-03-04] MEDS: MEROPENEM 1 GM/50 ML 1 GM in Premix Bag 1 BAG IVPB SCH ×2 (08:42→15:31)
[2021-03-04] MEDS: Enoxaparin Sodium 30 MG/0.3 ML SYRINGE SC SCH (08:43)
[2021-03-05] MEDS: MEROPENEM 1 GM/50 ML 1 GM in Premix Bag 1 BAG IVPB SCH ×2 (00:25→08:29)
[2021-03-05] MEDS: Enoxaparin Sodium 30 MG/0.3 ML SYRINGE SC SCH (08:29)
[2021-03-05 11:54] VITALS: BP 168/75; TEMP 97.8
[2021-03-05] MEDS ORDERED: Lorazepam 2 MG/ML VIAL SLOW IVP PRN (13:37)
[2021-03-05] MEDS ORDERED: Morphine 2 MG/ML VIAL SLOW IVP PRN (13:38)
[2021-03-05] MEDS ORDERED: Scopolamine 1.5 mg/72 hour Patch TOP SCH (13:45)
[2021-03-05] MEDS ORDERED: Morphine 2 MG/ML VIAL SLOW IVP SCH (14:00)
== END 2021-03-05 14:00 | disposition hospice, inpatient (51) | DRG 871 ==
LOC: IMCU/EMU 03:02 → UNDOADMIN 02-28 17:39 → IMCU/EMU 02-28 17:39 → T4-A 03-01 15:57 → IMCU/EMU 03-01 15:57 → UNDODISIN 03-05 14:00
PROVIDERS: ADMIT Internal Medicine; ATTEND Internal Medicine
PROC: 0W9B3ZZ Drainage of Left Pleural Cavity, Percutaneous Approach (ICD-10-PCS; principal; 2021-02-27)
DX: A41.9 Sepsis, unspecified organism (principal); J69.0 Pneumonitis due to inhalation of food and vomit; J96.01 Acute respiratory failure with hypoxia; E43 Unspecified severe protein-calorie malnutrition; R64 Cachexia; E87.1 Hypo-osmolality and hyponatremia; J94.8 Other specified pleural conditions; J91.8 Pleural effusion in other conditions classified elsewhere; I50.32 Chronic diastolic (congestive) heart failure; I69.959 Hemiplegia and hemiparesis following unspecified cerebrovascular disease affecting unspecified side; Z68.1 Body mass index [BMI] 19.9 or less, adult; J93.9 Pneumothorax, unspecified; R65.20 Severe sepsis without septic shock; Z66 Do not resuscitate; Z20.822 Contact with and (suspected) exposure to COVID-19; J43.9 Emphysema, unspecified; I11.0 Hypertensive heart disease with heart failure; E78.5 Hyperlipidemia, unspecified; F17.210 Nicotine dependence, cigarettes, uncomplicated; F10.10 Alcohol abuse, uncomplicated; F14.10 Cocaine abuse, uncomplicated; I69.922 Dysarthria following unspecified cerebrovascular disease; Z74.01 Bed confinement status; D63.8 Anemia in other chronic diseases classified elsewhere; E87.6 Hypokalemia; K29.60 Other gastritis without bleeding; D64.9 Anemia, unspecified; E83.31 Familial hypophosphatemia; B96.81 Helicobacter pylori [H. pylori] as the cause of diseases classified elsewhere; Z93.1 Gastrostomy status
CPT/HCPCS: 0240U; 36415; 51701; 71045; 71270; 76942; 80048; 80053; 81003; 81015; 82150; 82550; 82553; 82945; 83605; 83615; 83735; 84157; 84484; 85025; 87040; 87070; 87086; 87116; 87205; 87206; 88112; 88305; 89051; 93005; 94640; 94760; 96365; 96367; 96375; J0456; J0696; J1650; J1956; J2185; J2270; J2930; J3370; J3475; J3480; J7050; J7070; J7620

== ENCOUNTER 2021-03-05 14:15 | Inpatient (IN) | payer OTHER ==
[2021-03-05] MEDS ORDERED: Lorazepam 2 MG/ML VIAL SLOW IVP PRN (14:36)
[2021-03-05] MEDS ORDERED: Morphine 2 MG/ML VIAL SLOW IVP PRN (14:37)
[2021-03-05] MEDS ORDERED: Scopolamine 1.5 mg/72 hour Patch TOP SCH (14:45)
[2021-03-05] MEDS: Morphine 2 MG/ML VIAL SLOW IVP SCH ×4 (15:59→21:48)
[2021-03-05 20:48] VITALS: TEMP 97.7
[2021-03-06] MEDS: Morphine 2 MG/ML VIAL SLOW IVP SCH ×8 (00:39→13:49)
[2021-03-06 15:31] VITALS: BP 58/36
== END 2021-03-06 15:20 | disposition expired | DRG 951 ==
LOC: T4-A 14:15
PROVIDERS: ADMIT Internal Medicine Nephrology; ATTEND Internal Medicine Nephrology
DX: Z51.5 Encounter for palliative care (principal); J69.0 Pneumonitis due to inhalation of food and vomit; Z66 Do not resuscitate; J96.01 Acute respiratory failure with hypoxia; A41.9 Sepsis, unspecified organism; R65.20 Severe sepsis without septic shock; J93.9 Pneumothorax, unspecified; I50.32 Chronic diastolic (congestive) heart failure; J44.9 Chronic obstructive pulmonary disease, unspecified; K29.70 Gastritis, unspecified, without bleeding; D64.9 Anemia, unspecified; E83.31 Familial hypophosphatemia; I11.0 Hypertensive heart disease with heart failure; B96.81 Helicobacter pylori [H. pylori] as the cause of diseases classified elsewhere; E87.6 Hypokalemia; E78.5 Hyperlipidemia, unspecified; Z86.73 Personal history of transient ischemic attack (TIA), and cerebral infarction without residual deficits; Z79.51 Long term (current) use of inhaled steroids; Z79.899 Other long term (current) drug therapy; Z98.890 Other specified postprocedural states; Z80.1 Family history of malignant neoplasm of trachea, bronchus and lung; Z93.1 Gastrostomy status; Z87.891 Personal history of nicotine dependence
CPT/HCPCS: J2060; J2270